=== PATIENT | male | born 2005 | race Caucasian/White ===

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

== ENCOUNTER 2023-05-08 10:39 | Emergency (ER) | payer MEDICAID, SELFPAY ==
--- NOTE | ~2023-05-08 | US_ITS ---
EXAMINATION: US SCROTUM CLINICAL INFORMATION: Right-sided testicular pain. COMPARISON: None available. TECHNIQUE: A sonogram of the scrotum was performed assessing coronel-scale appearance and color Doppler flow. Spectral Doppler analysis of the arterial and venous flow were performed in the testes bilaterally. FINDINGS: RIGHT: Right testicle measures 5.2 x 2.1 x 3.1 cm, volume 19.1 mL. No focal testicular parenchymal lesions are visualized. Spectral Doppler analysis of the arterial and venous flow is normal in the right testis. Right epididymal head is normal in size. No right hydrocele or varicocele is seen. Right epididymal Doppler flow is normal. LEFT: Left testicle measures 5.2 x 2.3 x 3.3 cm, volume 20.4 mL. No focal testicular parenchymal lesions are visualized. Spectral Doppler analysis of the arterial and venous flow is normal in the left testis. Left epididymal head is normal in size. No left hydrocele or varicocele is seen. Left epididymal Doppler flow is normal. US/US scrotum IMPRESSION: Normal testicular ultrasound.
--- NOTE | ~2023-05-08 | US_ITS ---
EXAMINATION: US SCROTUM CLINICAL INFORMATION: Right-sided testicular pain. COMPARISON: None available. TECHNIQUE: A sonogram of the scrotum was performed assessing coronel-scale appearance and color Doppler flow. Spectral Doppler analysis of the arterial and venous flow were performed in the testes bilaterally. FINDINGS: RIGHT: Right testicle measures 5.2 x 2.1 x 3.1 cm, volume 19.1 mL. No focal testicular parenchymal lesions are visualized. Spectral Doppler analysis of the arterial and venous flow is normal in the right testis. Right epididymal head is normal in size. No right hydrocele or varicocele is seen. Right epididymal Doppler flow is normal. LEFT: Left testicle measures 5.2 x 2.3 x 3.3 cm, volume 20.4 mL. No focal testicular parenchymal lesions are visualized. Spectral Doppler analysis of the arterial and venous flow is normal in the left testis. Left epididymal head is normal in size. No left hydrocele or varicocele is seen. Left epididymal Doppler flow is normal. US/US scrotum doppler IMPRESSION: Normal testicular ultrasound.
[2023-05-08 11:24] VITALS: BP 120/78; PULSE 81; RESP 16; TEMP 36.4; O2SAT 98; BMI 16.7
--- NOTE | 2023-05-08 11:24 | ED_ITS ---
HPI - General Adult General Chief complaint: Urogenital-Male Stated complaint: Pain in Private Area Time Seen by Provider: 05/08/23 15:24 Source: patient and family Mode of arrival: ambulatory Limitations: no limitations History of Present Illness HPI narrative: 17yoM With no significant past medical history who is presenting to the ER with mother at bedside with complaints of right testicular pain over the past 3 days. He reports it is a sudden sharp pain that is intermittent. He has been exercising which he reports he normally exercises. He he has been taking Tylenol [id number]-[id number] which provided mild to no symptomatic relief. Has not tried any Motrin. He denies any thoughts of STDs, fevers, nausea / vomiting, abdominal pain, flank pain, dysuria hematuria, abnormal penile discharge, rashes or lesions to the penile/scrotal area, recent sexual intercourse patient reports he is not sexually active or has never been, testicular swelling, recent falls or trauma or any other symptoms complaints or concerns at this time. MD complaint: Right testicular pain Onset (ago): day(s) (3) Related Data Previous Rx's Medication Instructions Recorded cyclobenzaprine 10 mg tablet 10 mg PO Q8H #14 tabs 05/08/23 ibuprofen 800 mg tablet 800 mg PO Q8H PRN pain #14 tabs 05/08/23 Allergies Allergy/AdvReac Type Severity Reaction Status Date / Time No Known Allergies Allergy Unverified 06/14/20 17:23 Review of Systems Review of Systems: Constitutional : No Weight loss, No Fever, No Chills, No Night Sweats, No Fatigue, NoMalaise ENT/Mouth: No ear pain, No sore throat, No Difficulty swallowing Cardiovascular : No Chest Pain, No SOB, No Dyspnea on Exertion, No Orthopnea, NoEdema, No Palpitations Respiratory : No Cough, No Sputum, No Wheezing, No Dyspnea Gastrointestinal : No Nausea, No Vomiting, No Diarrhea, No abdominal Pain, No Hematochezia, No Melena Genitourinary : + testicular pain, No irregular bleeding, No Dysuria, No Urinary Frequency, No Hematuria,No Urinary Incontinence, No Urgency, No Flank Pain Musculoskeletal : No joint pain, No Myalgias, No Joint Swelling Skin : No Skin Lesions, No rash Neuro : No Weakness, No Numbness, No Paresthesias, No Loss of Consciousness, NoDizziness, No Headache Psych : No Social Issues, Heme/Lymph: No Bruising, No Bleeding,No Lymphadenopathy Endocrine : No Polyuria, No Polydipsia, No Temperature Intolerance PATIENT DENIES ANY THOUGHTS OF STDS Yes all other systems are reviewed and are negative [facility] Past Medical History Attestation statement: The following information was validated with the patient. Source: old records reviewed, obtained from family and nursing notes reviewed Physical Exam ED Vital Signs: Vital Signs - 24 hr 05/08/23 11:24 Temperature 97.6 F Pulse Rate 81 Respiratory Rate 16 Blood Pressure 120/78 Pulse Oximetry 98 Oxygen Delivery Method Room Air BMI result Body Mass Index 16.7 vital signs reviewed and all within normal limits Appearance: Alert. Oriented X3. No acute distress. Head: Normal external exam. Normocephalic. Atraumatic. Eyes: PERRLA. EOMI. Conjunctiva and sclera normal. Eyelids normal. ENT: Pharynx normal. Uvula midline. Moist mucous membranes. Neck: Normal inspection. Neck supple. FROM. No adenopathy. No meningeal signs. CVS: Normal heart rate and rhythm. Heart sound normal. No murmurs noted. Pulses normal throughout. Respiratory: No respiratory distress. Painless inspiration. Breath sounds normal. No wheezes/rales/rhonchi noted. Chest nontender. No accessory muscle usage noted or decreased air movement noted. Abdomen: Soft and nontender. Bowel sounds normal in all 4 quadrants. No distention noted. No organomegaly noted. No visible injury noted. : Chaperoned by . Normal external exam. No masses/lumps/ecchymosis/edema/erythema/lacerations/lesions/vesicles/induration or tenderness noted. No hernia noted. No inguinal lymphadenopathy noted. Normal penis free of discharge. The scrotum is normal. Testicles are both de scended bilaterally and appear normal. No hydrocele or scrotal mass/swelling noted. No varicocele. Epididymides normal. No blue dot sign. Back: No CVA tenderness. Full range of motion noted. Skin: Skin warm and dry. Normal skin color. Normal skin turgor. No rashes/lesions/lacerations noted. Extremities: Extremities exhibit normal range of motion. Extremities nontender. Neuro: Oriented X 3. No motor deficit. No sensory deficit. Reflexes normal. Course Course Course Narrative: This is an RME: Additional HPI, ROS, PE not included below will be deferred to primary provider. 17 yo m presents w/ right sided testicular pain X 3 days started suddenlt sharp pain Plan- UA, NG/CT, US Reevaluation(s) Reevaluation #1: 17-year-old male presenting with atraumatic right testicular pain for the past 3 days which reports sudden sharp pain. Has been exercising although has been exercising for a while this is not new. Denies any other symptoms related to this. Not sexually active denies any thoughts of STDs. On exam patient exam is completely normal. No obvious scrotal swelling. No penile discharge. No rashes or lesions. He does not have any tenderness when I apply any palpation or pressure. UA obtained and negative for UTI. Gonorrhea chlamydia negative. Ultrasound negative for torsion or any other acute processes. Patient most likely muscular strain from exercising. Will DC home with Motrin and Flexeril with instructions return if any new or worsening symptoms follow up with PCP/neurology. Patient with mother at bedside understand agree this plan. Time: 15:35 Medical Decision Making Medical Decision Making MDM Narrative: see course Differential Diagnosis Differential Diagnoses: The differential diagnosis associated with the presentation includes see course Lab Data [facility] Lab Attestation statement: I reviewed the patient's lab results. Labs: Lab Results 05/08/23 05/08/23 Range/Units 12:33 12:33 Urine Color Yellow Urine Appearance Clear Urine pH 6.0 (5.0-9.0) Ur Specific [place] 1.010 (1.005-1.025) Urine Protein Negative (Neg-Trace) mg/dL Urine Glucose (UA) Negative (Negative) mg/dL Urine Ketones Negative (Negative) mg/dL Urine Blood Negative (Negative) Urine Nitrite Negative (Negative) Ur Leukocyte Esterase Negative (Negative) Urine RBC 0-2 (0-2) /HPF Urine WBC 0-5 (0-5) /HPF Ur Squamous Epith Cells 0-2 (0-2) /HPF Urine Bacteria None Seen (None Seen) Hyaline Casts 0-2 (0-2) /LPF Chlam trachomat DNA PCR NOT DETECTED (Not Detect.) N.gonorrhoeae DNA (PCR) NOT DETECTED (Not Detect.) Independent Interpretation I performed an independent interpretation of an: Ultrasound Interpretation: Ultrasound of testicle reviewed by myself this is my independent interpretation no acute findings agreeable with radiologist reports Radiology Impression Discussion of test interpretation with radiology: I have reviewed the radiologist's reading. Radiologist Impression: FINDINGS: RIGHT: Right testicle measures 5.2 x 2.1 x 3.1 cm, volume 19.1 mL. No focal testicular parenchymal lesions are visualized. Spectral Doppler analysis of the arterial and venous flow is normal in the right testis. Right epididymal head is normal in size. No right hydrocele or varicocele is seen. Right epididymal Doppler flow is normal. LEFT: Left testicle measures 5.2 x 2.3 x 3.3 cm, volume 20.4 mL. No focal testicular parenchymal lesions are visualized. Spectral Doppler analysis of the arterial and venous flow is normal in the left testis. Left epididymal head is normal in size. No left hydrocele or varicocele is seen. Left epididymal Doppler flow is normal. US/US scrotum doppler IMPRESSION: Normal testicular ultrasound. Independent Historian Clinical information obtained from an independent historian. History obtained from or confirmed by: Parent External Record Review External record reviewed: Inpatient record, Office record, Outpatient record, Prior outpatient labs, Prior outpatient radiology, Primary care record and Outside ED record all prior labs/ imaging/notes that are accessible in our system reviewed by myself Prescription Management I considered prescription management with: Pain Medication Social Determinants Patient?s care significantly limited by Social Determinants of Health including: Other Social Determinant of Health Discharge Plan Discharge Clinical Impression: Pain in right testicle Patient Disposition: Home, Self-Care Instructions: Testicle Pain (ED) Prescriptions: New cyclobenzaprine 10 mg tablet 10 mg PO Q8H Qty: 14 0RF ibuprofen 800 mg tablet 800 mg PO Q8H PRN (Reason: pain) Qty: 14 0RF Referrals: [facility] [place] [facility] [Provider Group] (call to make a follow-up appointment ) Nikolay Umanzor MD [Primary Care Provider] - 1 day
[2023-05-08 12:49] LABS: Appearance Urine Clear; Color Urine Yellow; Glucose Urine UA Negative (Negative); Leukocyte Esterase Urine Negative (Negative); Nitrite Urine Negative (Negative); Urine Blood Negative (Negative); Urine Ketones Negative (Negative); Urine Protein Negative (Neg-Trace)
[2023-05-08 12:51] LABS: Bacteria Urine None Seen (None Seen); Hyaline Casts Urine 0-2 /LPF (0-2); RBC Urine 0-2 /HPF (0-2); Squamous Epithelial Cell Urine 0-2 /HPF (0-2); WBC Urine 0-5 /HPF (0-5)
[2023-05-08 14:16] LABS: CT PCR NOT DETECTED (Not Detect.); NG PCR NOT DETECTED (Not Detect.)
[2023-05-08 15:42] VITALS: BP 125/79; PULSE 85; RESP 18; O2SAT 97
== END 2023-05-08 15:45 | disposition home or self-care (01) ==
PROVIDERS: Physician Assistant; Emergency Provider Emergency Medicine Emergency Medical Services; PCP Internal Medicine
DX: N50.811 Right testicular pain (principal)
CPT/HCPCS: 0353U; 76870; 81001; 93975; 99283; 99284

== ENCOUNTER 2025-05-25 17:45 | Emergency (ER) | payer OTHER, SELFPAY ==
[2025-05-25 18:13] VITALS: BP 156/70; PULSE 96; RESP 16; TEMP 36.9; O2SAT 98; BMI 17.2
--- NOTE | 2025-05-25 18:19 | ECG_ITS ---
Test Reason : DIZZINESS Blood Pressure : */* mmHG Vent. Rate : 85 BPM Atrial Rate : 85 BPM P-R Int : 158 ms QRS Dur : 102 ms QT Int : 342 ms P-R-T Axes : 78 101 67 degrees QTcB Int : 406 ms Normal sinus rhythm Rightward axis Incomplete right bundle branch block Borderline ECG When compared with ECG of 06-Sep-2022 13:51, No significant change was found Referred By: Tessa Mckenna Electronically Signed By: HILDA SANTOS
[2025-05-25 18:33] LABS: MANUAL DIFF FLAG NO
[2025-05-25 18:36] LABS: Hematocrit 43.2 % (42.0-52.0); Hemoglobin 15.9 g/dl (14.0-18.0); Imm Gran Abs Auto 0.00 X10*3/uL (0.00-0.03); Imm Gran Pct Auto 0.0 % (0.0-0.4); Lymphocytes Absolute Auto 1.8 X10*3/uL (1.2-4.9); Mean Corpuscular HGB Conc 36.8 g/dl (31.0-36.0); Mean Corpuscular Hemoglobin 32.4 pg (27.0-33.0); Mean Corpuscular Volume 88.0 fL (80.0-98.0); NRBC Abs Auto 0.000 X10*3/uL (0.0-0.012); NRBC Pct Auto 0.0 /100WBC (0.0-0.2); Platelet Count 275 X10*3/uL (160-400); Red Blood Count 4.91 X10*6/uL (4.60-5.80); White Blood Count 4.6 X10*3/uL (4.8-10.8)
[2025-05-25 18:51] LABS: Alanine Aminotransferase 22 U/L (0-40); Albumin Level 5.1 g/dL (3.5-5.0); Alkaline Phosphatase 77 U/L (39-117); Anion Gap 12 (12-20); Aspartate Amino Transferase 25 U/L (5-37); Blood Urea Nitrogen 15 mg/dL (9-16); Calcium 9.9 mg/dL (8.4-10.2); Carbon Dioxide 30 mmol/L (22-29); Chloride 102 mmol/L (96-108); Creatinine Clr Calc Pharmacy 90.2; Estimated Glomerular Filt Rate > 60; Magnesium 2.2 mg/dL (1.6-2.6); Potassium 3.8 mmol/L (3.3-5.1); Sodium 140 mmol/L (135-145); Total Protein 8.0 g/dL (6.5-8.0)
--- NOTE | 2025-05-25 18:53 | ED.DIZZY ---
HPI - Dizziness General Chief Complaint: Dizziness Stated Complaint: Vertigo Time Seen by Provider: 05/25/25 21:49 Source: patient Mode of arrival: ambulatory Limitations: no limitations History of Present Illness ED Provider: Kayden BANDA HPI Narrative: The patient is an otherwise healthy 19-year-old male presenting to the ED reporting for the past 4 days he has been experiencing dizziness described as feeling lightheaded and in a fog. The patient reports 4 days ago he was cleaning his ears with a Q-tip when he felt like he hit his eardrum and symptoms began since that time. The patient denies associated headache, focal neurological deficit, fall or other recent trauma, sick contacts, fever/chills, chest pain, shortness of breath, nausea, vomiting, otorrhea, or any hearing changes. The patient denies history of similar symptoms. Related Data Previous Rx's ?Medication ?Instructions ?Recorded cyclobenzaprine 10 mg tablet 10 mg PO Q8H #14 tabs 05/08/23 ibuprofen 800 mg tablet 800 mg PO Q8H PRN pain #14 tabs 05/08/23 Allergies Allergy/AdvReac Type Severity Reaction Status Date / Time No Known Allergies Allergy Verified 05/25/25 18:20 Review of Systems Review of Systems: Yes all other systems are reviewed and are negative PMFSH Social History Social History Alcohol intake: never Smoked in Last 30 Days: Yes Substance Use Type: Marijuana Advance Directives: No Advance Directives Information Provided: No Do you have a plan to hurt others: No Plan Physical Exam Vital Signs: Vital Signs: Last Vital Signs Temp 98.4 F 05/25/25 18:13 Pulse 87 05/25/25 22:32 Resp 16 05/25/25 22:32 BP 136/76 05/25/25 22:32 Pulse Ox 98 05/25/25 22:32 O2 Del Method Room Air 05/25/25 22:32 BMI result Body Mass Index 17.2 CONSTITUTIONAL: The patient appears non-toxic, well nourished and in no acute distress. Vital signs as documented. HEAD: Atraumatic, normocephalic. EYES: EOMs intact, pupils equal, round, and reactive to light, conjunctiva clear, no exudate. ENT: Nares patent, no discharge. Airway patent, no audible stridor, visible mucosa is pink and moist without noted lesions. Left ear canal and TM is unremarkable. Right ear canal demonstrates complete cerumen impaction, unable to visualize TM. NECK: Trachea is midline, no obvious masses or gross abnormalities. No nuchal rigidity or meningismus. CHEST: Symmetric movement, normal appearance. LUNGS: LS present and CTAB, no w/r/r. Non-labored work of breathing. CARDIAC: Regular Rhythm, S1/S2 appreciated, no murmurs, rubs or gallops. ABDOMEN: Abdomen soft and non-tender x4 quadrants, no palpable masses or organomegaly. : Deferred. EXTREMITIES: Normal tone, moves all extremities spontaneously without reported pain. No obvious acute injury or deformity noted. NEURO: Alert and oriented x3, CN II-XII intact. Cerebellar Functioning intact. Strength 5/5 x4. No sensory or motor deficits. Speech clear and appropriate. PSYCH: normal affect, appropriate eye contact, fluid speech, with appropriate response to questioning. No reported suicidality or homicidality. SKIN: Warm, dry, color appropriate, normal turgor. No rashes noted. Course Course Course Narrative: This is an RME: Additional HPI, ROS, PE not included below will be deferred to primary provider. RME assessment and note performed by: Tessa Mckenna PA-C This is a [age] who presents to the [facility] complaints of certigo-dizziness. Reports that he was cleaning his ears and believes that he struck his ear drum and symptoms started after. Further ER eval needed Plan: Labs, EKG Medical Decision Making Medical Decision Making MDM Narrative: 10:24 PM 05/25/2025 (Pavan BANDA): The patient is a 19-year-old male presenting to the ED for 4 days of dizziness described as lightheadedness with off-balance sensation. The patient reports symptoms began after using a Q-tip on his right ear and feeling like he struck his eardrum. The patient denies other acute somatic complaint. The patient in the ED is markedly well-appearing, exam reveals no focal neurological deficit, no indication for CT imaging at this time. however there is a cerumen impaction noted in the right ear. The patient's laboratory evaluation reveals no leukocytosis, anemia, electrolyte insufficiency, or JOSE. LFTs are unremarkable. The patient's EKG is nonischemic. We will flush the patient's ear and reassess. 10:48 PM 05/25/2025 (Pavan BANDA): Irrigation successfully removed cerumen impaction, post irrigation the patient's TM is visible and shows no perforation or evidence of infection. The patient will be discharged with outpatient follow up with PCP. Admission/Observation Consideration of admission/observation: Escalation of care including admission/observation considered Lab Data [facility] Lab Attestation statement: I reviewed the patient's lab results. 05/25/25 18:29 05/25/25 18:29 Labs: Lab Results 05/25/25 Range/Units 18:29 WBC 4.6 L (4.8-10.8) X10*3/uL RBC 4.91 (4.60-5.80) X10*6/uL Hgb 15.9 (14.0-18.0) g/dl Hct 43.2 (42.0-52.0) % MCV 88.0 (80.0-98.0) fL MCH 32.4 (27.0-33.0) pg MCHC 36.8 H (31.0-36.0) g/dl RDW 11.1 (11.0-16.0) % Plt Count 275 (160-400) X10*3/uL MPV 9.4 (9.4-12.4) fL Immature Gran % (Auto) 0.0 (0.0-0.4) % Neut % (Auto) 49.2 (45-73) % Lymph % (Auto) 38.2 (20-40) % [place] % (Auto) 9.8 (2-11) % Eos % (Auto) 2.4 (0-4) % Baso % (Auto) 0.4 (0-2) % Lymph # (Auto) 1.8 (1.2-4.9) X10*3/uL [place] # (Auto) 0.5 (0.1-1.2) X10*3/uL Eos # (Auto) 0.1 (0.0-0.4) X10*3/uL Baso # (Auto) 0.0 (0.0-0.2) X10*3/uL Abs Immat Gran (auto) 0.00 (0.00-0.03) X10*3/uL Absolute Neuts (auto) 2.3 (2.0-8.3) x10*3/uL Absolute Nucleated RBC 0.000 (0.0-0.012) X10*3/uL Nucleated RBC % (auto) 0.0 (0.0-0.2) /100WBC Sodium 140 (135-145) mmol/L Potassium 3.8 (3.3-5.1) mmol/L Chloride 102 (96-108) mmol/L Carbon Dioxide 30 H (22-29) mmol/L Anion Gap 12 (12-20) BUN 15 (9-16) mg/dL Creatinine 0.91 (0.5-1.4) mg/dL Estim Creat Clear Calc 90.2 Estimated GFR > 60 Random Glucose 99 (60-115) mg/dL Calcium 9.9 (8.4-10.2) mg/dL Magnesium 2.2 (1.6-2.6) mg/dL Total Bilirubin 0.7 (0.0-1.0) mg/dL Direct Bilirubin 0.3 (0.0-0.5) mg/dL AST 25 (5-37) U/L ALT 22 (0-40) U/L Alkaline Phosphatase 77 (39-117) U/L Total Protein 8.0 (6.5-8.0) g/dL Albumin 5.1 H (3.5-5.0) g/dL Independent Interpretation I performed an independent interpretation of an: EKG (EKG shows sinus rhythm with a rate of 85 with incomplete right bundle-branch block, no evidence of acute ischemia, no ST elevation, no ectopy. QTC 406. Compared to previous on 09/06/2022 there are no significant morphology changes. ) External Record Review External record reviewed: Outpatient record Tests considered The following testing was considered but not selected: CT Head Prescription Management I considered prescription management with: Antibiotic Discharge Plan Discharge Clinical Impression: Dizziness Cerumen impaction Qualifiers: Laterality: right Qualified Code(s): H61.21 - Impacted cerumen, right ear Patient Disposition: Home, Self-Care Instructions: Dizziness (ED), Ear Foreign Body (ED) Additional Instructions: Thank you for choosing [facility] Emergency Department for your care today. Thankfully your laboratory evaluation, EKG, and exam today are all reassuring. There is no evidence of a neurologic, infectious, metabolic, or cardiac cause for your dizziness. At this time there is no indication for admission to the hospital or continued ED observation, and it is safe to discharge you home. Your exam today did show that you are suffering from a ear wax obstruction (cerumen impaction) of your right ear. This can cause balance issues which may be contributing to your symptoms. Your your wax was successfully irrigated/flushed and there was no evidence of an inner ear infection or perforation of your eardrum. Please continue monitoring her symptoms and follow up with the your primary care provider for re-evaluation, additional management of your symptoms, and continued preventative care. If you do not have a primary care physician, please call the [facility] at [phone] to establish a new primary care physician. While waiting to establish your new primary care physician, you can call our Walk-in Care Clinic at [phone] for non-emergency needs. Please return to the emergency department if you develop a severe or sudden change in your symptoms, a fever over 100.4 that does not improve with Tylenol or Ibuprofen, recurrent vomiting, or any other new or worsening symptoms or concerns. Prescriptions: No Action cyclobenzaprine 10 mg tablet 10 mg PO Q8H Qty: 14 0RF ibuprofen 800 mg tablet 800 mg PO Q8H PRN (Reason: pain) Qty: 14 0RF Referrals: Physician,Unknown J [Primary Care Provider, Medical] Clinical Impression: Cerumen impaction; Dizziness Stand Alone Forms: Work/School Release Print Language: [place]
--- OUTSIDE RECORDS SUMMARY | 2025-05-25 21:23 | XMS_ITS | Clinical Summary ---
Author Organization [address] [place] [address] [place] [id number] Phone Care Team Providers Care Rouge Mixer Name Role Phone Nikolay Umanzor MD Primary Care Provider Allergies No known active allergies Medications No known medications Active Problems Problem Noted Date Diagnosed Date Pharyngoesophageal dysphagia 08/20/2021 Overview (09/29/2024): 08/20/2021 ref to GI Pollen-food allergy 08/19/2021 Seasonal allergic rhinitis due to pollen 021 Underweight 06/15/2019 Overview (09/29/2024): 06/16 Periactin ADHD (attention deficit hyperactivity disorder) 03/10/2017 Overview (09/29/2024): 07/02/16 - Stable on meds, seeing therapist who prescribes the meds. Was on 20 mg Adderall XR. Decreased to 10 mg 01/26/15. No response to Concerta in 07/14 Is not taking medication. Has IEP in /19 No meds doing well Eczema 03/10/2017 Overview (09/29/2024): 10/16/09 Encounters Date Type Department Care Team Description 02/23/2025 Telephone Walk-In Clinic [address] [id number] Sarah Read NP 02/22/2025 11:30 AM EDT Office Visit Walk-In Clinic - [facility] [address] [place] [address] Abelardo Earl PA Inguinal lymphadenopathy (Primary Dx) from Last 3 Months Immunizations Name Administration Dates Next Due DTaP (Infanrix) 6wks to less than 7yo ,04/18/2005,05/28/2004,01/04,2003 [id number] (Pentacel) 2mo to less than 5yo 04/18/2005,05/28/2004,01/05/2004,11/02 H1N1 Inj Preservative Free 01/22/2010,12/21/2009 IPV Inactivated polio (Ipol) 6wks and older 10/27/2008,05/28/2004,01/05/2004,11/02 Influenza Quadravalent, MDCK , 0.5ml, preservative free (Flucelvax) 6mo and older 09/04/2023,10/24/2022 Influenza Quadrivalent, 0.5m l, preservative free (Fluarix; FluLaval; Fluzone) ages 6mo and older (Afluria) 3yo and older 08/19/2021,07/20/2019,07/15/2018 Influenza Whole 06/20/2009,08/25/2006 Influenza trivalent, 0.5mL, preservative free (Fluarix; FluLaval; Fluzone) ages 6mo and older (Afluria) 3 years and older 07/06/2017 Influenza trivalent, with pr eservative (Fluzone; Afluria) 6mo and older 06/29/2020,07/02/2016,10/10/2015,07/13,10/15/2013,07/10/2011,09/08/2007 ,07/09/2006 Influenza, live, intranasal, trivalent (FluMist) 2yo to less than 50yo 06/04/2012 MMR, measles mumps and rubel la Live (Priorix; M-M-R II) 12mo and older 10/27/2008,11/12/2004 Meningococcal MCV4P 08/16/2020 Meningococcal, Unspecified 01/26/2015 Pneumococcal Conjugate Vacci ne, 7 Valent 04/18/2005,05/28/2004,01/05/2004,11/02 Tdap Tetanus diptheria acell ular pertussis (Boostrix; Adacel) 7yo and older 01/26/2015 Varicella live (Varivax) 12m o and older 10/27/2008,11/02/2004 Medical History Medical History Date Comments ADHD (attention deficit hype ractivity disorder) 03/10/2017 DX:ADHD (attention deficit hyperactivity disorder); COMMENT: 07/02/16 - Stable on meds, seeing therapist who prescribes the meds. Was on 20 mg Adderall XR. Decreased to 10 mg 01/26/15. No response to Concerta in 2013 BMI (body mass index), pedia tric, less than 5th percentile for age 603/10/2017 DX:BMI (body mass ind ex), pediatric, less than 5th percentile for age; COMMENT: 07/02/16 weight has always been low. Now not gaining as well. Less of an appetite on stimulant. Trial of Periactin. F/u in 2 months. Developmental speech disorder 03/10/2017 DX :Developmental speech disorder; COMMENT: Previous EI, [facility]. Speech therapy. 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 ? Started after some trauma. Derm Referral. No additional details available in transfer records Wears glasses 03/10/2017 DX:Wears glasses Underweight 06/15/2019 DX:Underweight; COMMENT: 06/16 Periactin Family History Medical History Relation Name Comments Thyroid disease Father's side Alcohol abuse Maternal Grandfather Diabetes Maternal Grandmother Other: hear disease Maternal Grandmother Depression Mother GI problems Mother Thyroid disease Mother's side Depression Sister Other: Asthma Depression Sister Relation Name Status Comments Father's side Maternal Grandfather Maternal Grandmother Mother Alive Mother's side Sister Social History Tobacco Use Types Packs/Day Years Used Date Smoking Tobacco: Never Smokeless Tobacco: Never Alcohol Use Standard Drinks/Week Comments No 0 (1 standard drink = 0.6 oz pur e alcohol) Sex and Gender Information Value Date Recorded Sex Assigned at Not on file Legal Sex Male 4:34 AM EST Gender Identity Not on file Sexual Orientation Not on file Obstetrics History Last Filed Vital Signs Vital Sign Reading Time Taken Comments Blood Pressure 126/73 02/22/2025 11:41 AM EDT Pulse 105 02/22/2025 11:41 AM EDT Temperature 36.7 C (98 F) 02/22/2025 11:41 AM EDT Respiratory Rate - - Oxygen Saturation 98% 02/07/2025 2:13 PM EDT Inhaled Oxygen Concentration - - Weight 47.6 kg (105 lb) 09/04/2023 2:19 PM EST Height 172.7 cm (5' 8 ) 09/04/2023 2:19 PM EST Body Mass Index 15.97 09/04/2023 2:19 PM EST Plan of Treatment Health Maintenance Due Date Last Done Comments HPV Vaccines (1 - Male 3-dose series) 2018 Meningococcal B Vaccine (1 of 2 - Standard) 2019 HIV Screening 09/06/2022 Hepatitis C Screening 09/06/2022 Social Influencers of Health Screening 09/06/2022 Annual Well Child Visit (3-21 years old) 10/24/2023 10/24/2022, 08/19/2021, 08/16/2020, Additional history exists COVID-19 Vaccine ( - season) 2024 Depression Screening 09/28/2024 DTaP,Tdap,and Td Vaccines (7 - Td or Tdap) 01/26/2025 01/26/2015, 10/27/2008, 04/18/2005, Additional history exists Influenza Vaccine (#1) 2025 , 10/24/2022, 08/19/2021, Additional history exists Hepatitis B Vaccines Completed 05/28/2004, 2003, 2003 HIB Vaccines Completed 04/18/2005, 03/29, 05/28/2004, Additional history exists Pneumococcal Vaccine: Pediatrics (0 to 5 Years) and At-Risk Patients (6 to 49 Years) Completed 04/18/2005, 05/28/2004, 01/05/2004, Additional history exists IPV Vaccines Completed 10/27/2008, 03/29, 05/28/2004, Additional history exists MMR Vaccines Completed 10/27/2008, 11/12/2004 Varicella Vaccines Completed 10/27/2008, 11/02/2004 Meningococcal ACWY Vaccine Completed 08/16/2020, Hepatitis A Vaccines Aged Out No long er eligible based on patient's age to complete this topic RSV Immunization Patients Under 20 months Aged Out No longer eligible based on patient's age to complete this topic Procedures Procedure Name Priority Date/Time Associated Diagnosis Comments CHLAMYDIA TRACHOMATIS AND NEISSERIA GONORRHOEAE PCR Routine 02/22/2025 11:52 AM EDT Inguinal lymphadenopathy from Last 3 Months Results * Chlamydia trachomatis and Neisseria gonorrhoeae molecular study (02/22/2025 11:52 AM EDT) Neisseria gonorrhoeae PCR Negative Negative LAB MOLECULAR DIAGNOSTICS METHOD 02/23/2025 11:55 AM EDT [facility] Chlamydia trachomatis PCR Negative Negative LAB MOLECULAR DIAGNOSTICS METHOD 02/23/2025 11:55 AM EDT [facility] Urine Urine specimen from urethra / Unknown Non-blood Collection / Unknown 02/22/2025 11:52 AM EDT 02/22/2025 11:52 AM EDT us Abelardo BANDA LAB MICROBIOLOGY - GENERAL ORDERABLES Final Result [facility] [address] [place] [address], from Last 3 Months Insurance MEDICAID - [id number] Care Teams Rouge Mixer Relationship Specialty Start Date End Date Nikolay Umanzro MD [address] [place] [address] PCP - General 08/01/22
[2025-05-25 22:32] VITALS: BP 136/76; PULSE 87; RESP 16; O2SAT 98
[2025-05-25 23:04] VITALS: BP 136/76; PULSE 87; RESP 16; TEMP 36.6; O2SAT 98
== END 2025-05-25 23:16 | disposition home or self-care (01) ==
PROVIDERS: Physician Assistant Medical; Emergency Provider Student in an Organized Health Care Education/Training Program
DX: R42 Dizziness and giddiness (principal); H61.21 Impacted cerumen, right ear; I45.10 Unspecified right bundle-branch block; R94.31 Abnormal electrocardiogram [ECG] [EKG]
CPT/HCPCS: 36415; 80048; 80076; 83735; 85025; 93005; 99283; 99284

== ENCOUNTER → 2025-05-25 18:19 | Outpatient (BNV) | payer SELFPAY | PROVIDERS: Emergency Provider Student in an Organized Health Care Education/Training Program; Visit Provider Internal Medicine | DX: I45.10 Unspecified right bundle-branch block (principal) | CPT/HCPCS: 93010 ==